=== PATIENT | female | born 1975 | race Caucasian/White ===

== ENCOUNTER 2018-10-20 15:45 | Outpatient (CLI) | payer BC ==
--- NOTE | 2018-10-20 16:13 | RAD ---
TWO VIEW CHEST: Indication: Shortness of breath for one month. FINDINGS: Lungs are clear. No effusion or pneumothorax. Cardiac silhouette is normal in size. The osseous struc tures are intact. IMPRESSION: No focal consolidation. POS: C
== END 2018-10-20 15:46 | disposition home or self-care (01) ==
LOC: SCSRAD 15:45
PROVIDERS: ATTEND Family Medicine
DX: R06.9 Unspecified abnormalities of breathing (principal)
CPT/HCPCS: 71046

== ENCOUNTER 2020-01-13 07:34 | Outpatient (CLI) | payer BC ==
--- NOTE | 2020-01-13 10:24 | MRI ---
MRI LEFT KNEE: Date; 01/13/2020 PROVIDED CLINICAL HISTORY: Left knee pain. FINDINGS: Comparison made with the study dated 06/05/2013. Postoperative changes of ACL reconstruction are again demonstrated, with an intact appearance to the ACL graft. There is no evidence for mass-producing arthrofibrosis. The PCL, MCL, LCLC, and extensor m echanism appear intact. Evaluation of the menisci is limited by patient motion on the coronal sequences. There is possible Gr diane III signal involving the body of the medial meniscus in a vertical longitudinal peripheral manner as seen on image 20 of series 7 and 9. Of note, motion artifact is present in this region on both im aging sequences. The lateral meniscus demonstrates no definite evidence for tear. There is articular cartilage irregularity involving the posterior central lateral femoral condyle wit hout full thickness articular cartilage loss apparent. There is articular cartilage irregularity invo lving the median ridge and lateral facet of the patella with foci of near full thickness articular ca rtilage fissuring. There is lateral patellar tilt. There is a moderate-large knee joint effusion. No focal concerning regional marrow or muscular signal abnormality is evident. IMPRESSION: 1. Findings equivocal for nondisplaced peripheral vertical longitudinal tear involving the body of t he medial meniscus. 2. 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 3. Moderate-large knee joint effusion. POS: ANA
== END 2020-01-13 07:35 | disposition home or self-care (01) ==
LOC: BICMRI 07:34
PROVIDERS: ATTEND Orthopaedic Surgery
DX: M23.92 Unspecified internal derangement of left knee (principal); S83.242A Other tear of medial meniscus, current injury, left knee, initial encounter; M25.462 Effusion, left knee; M22.2X2 Patellofemoral disorders, left knee

== ENCOUNTER 2020-01-22 07:11 | Outpatient (CLI) | payer BC ==
[2020-01-22 15:16] LABS: #Basophils 0.1 10x3/uL (0.0-0.2); #Eosinphils 0.3 10x3/uL (0.0-0.5); #Monocytes 0.5 10x3/uL (0.0-1.1); #Neutrophils 5.8 10x3/uL (1.5-8.4); %Basophils 0.9 % (0.0-2.0); %Eosinophils 3.2 % (0.0-6.0); %Lymphocytes 22.4 % (18.0-47.0); %Monocytes 5.5 % (0.0-10.0); %Neutrophils 67.5 % (40.0-75.0); Hemoglobin 13.2 g/dL (12.0-16.0); Mean Corpuscular HGB CONC 32.5 G/DL (32.0-36.0); Mean Corpuscular Hemoglobin 28.9 PG (27.0-33.0); Mean Corpuscular Volume 88.8 fl (80.0-100.0); Mean Platelet Volume 10.5 fl (7.4-10.4); Platelet Count 316 10x3/uL (130-400); RBC Distribution Width 13.1 % (11.5-14.5); Red Blood Cell (RBC) Count 4.57 10x6/uL (3.90-5.20); White Blood Cell (WBC) Count 8.7 10x3/uL (4.5-11.0)
[2020-01-22 15:37] LABS: Anion Gap 15 mmol/L (10-20); BUN (Urea Nitrogen) 18 mg/dL (7.0-18.7); Calc. Creatinine Clearance 0 mL/min (70-130); Calcium 9.3 mg/dL (7.8-10.44); Carbon Dioxide 24 mmol/L (22-29); Chloride 103 mmol/L (98-107); Estimated GFR-MDRD 77; Potassium 4.8 mmol/L (3.5-5.1); Sodium 137 mmol/L (136-145)
[2020-01-22 15:44] LABS: BHCG - Serum Negative (NEGATIVE); Pregs Control Background? CLEAR/WHITE (CLR/WHITE); Pregs Control Bar Appear? YES (CONTROL BAR)
[2020-01-22 15:48] LABS: Glucose 58 mg/dL (70-105)
[2020-01-23 13:42] LABS: SARS-CoV-2 MS2 Positive; SARS-CoV-2 N Gene Negative; SARS-CoV-2 S Gene Negative; SARS-CoV-2 by NAA Not Detected (NotDetected); SARS-CoV-2 orf1ab Negative
--- NOTE | 2020-01-24 20:56 | EKG ---
Test Reason : Blood Pressure : / mmHG Vent. Rate : 065 BPM Atrial Rate : 065 BPM P-R Int : 140 ms QRS Dur : 092 ms QT Int : 388 ms P-R-T Axes : 067 070 062 degrees QTc Int : 403 ms Normal sinus rhythm Normal ECG No previous ECGs available Confirmed by Kelly ORTIZ ([id number]) on 01/24/2020 8:55:36 PM Referred By: MADHAVI Confirmed By:Kelly ORTIZ
== END 2020-01-22 07:12 | disposition home or self-care (01) ==
LOC: LABBT 07:11
PROVIDERS: ATTEND Orthopaedic Surgery
DX: Z01.818 Encounter for other preprocedural examination (principal); Z20.828 Contact with and (suspected) exposure to other viral communicable diseases; M23.92 Unspecified internal derangement of left knee
CPT/HCPCS: 80048; 84703; 85025; 87635; 93005; 93010; U0003

== ENCOUNTER 2020-01-27 06:08 | Day surgery (SDC) | payer BC ==
[2020-01-26 08:18] VITALS: BMI 34.4
--- NOTE | 2020-01-27 05:36 | HP ---
HISTORY OF PRESENT ILLNESS: The patient is a 44-year-old female, who has a year and a half history of intermittent pain and popping in her left knee, which developed after twisting her knee while sitting in an airplane. She has had some intermittent symptoms since that time, which have persisted despite rest, restriction of activities, anti-inflammatory medications, and previous cortisone injection. She will feel something pop out of place and she manipulates her knee back and then the symptoms resolve. She underwent ACL reconstruction in [place] in 1993 with initial good results. PAST MEDICAL HISTORY: The patient is otherwise in good health. She has a history of depression and ADHD. CURRENT MEDICATIONS: Include sertraline, spironolactone, aripiprazole, Vyvanse. ALLERGIES: SHE IS ALLERGIC TO ANIMALS AND POLLEN, BUT NO MEDICAL ALLERGIES. FAMILY HISTORY: Otherwise unremarkable. SOCIAL HISTORY: Otherwise unremarkable. REVIEW OF SYSTEMS: Otherwise unremarkable. PHYSICAL EXAMINATION: GENERAL: Reveals a healthy heavyset female. HEENT: Unremarkable. NECK: Supple. CHEST: Clear. HEART: Regular rate and rhythm. ABDOMEN: Soft, nontender. PELVIC: Deferred. RECTAL: Deferred. BREASTS: Deferred. EXTREMITIES: Pertinent findings of the left knee. There is 1+ effusion. There are healed incisions from previous ACL reconstruction. There is tenderness of the medial joint line. Range of motion is from 5 to 90 degrees and is painful. There is pain with attempted Tony's. On exam, the knee appears to be stable. Neurovascular exam is intact. DIAGNOSTIC STUDIES: X-rays of the right knee reveal evidence of previous ACL reconstruction and mild degenerative changes. MRI scan reveals previous ACL reconstruction and graft appear to be intact. There are mild degenerative changes and there are findings suggestive of nondisplaced peripheral vertical tear of the medial meniscus. IMPRESSION: Internal derangement of left knee with probable medial meniscal tear. PLAN: Arthroscopy of the left knee with partial medial meniscectomy and/or debridement and shaving. The nature of the surgery, length of recovery, and potential complications such as infection, loss of motion, incomplete relief, thromboembolic phenomena, neurovascular injury, posttraumatic degenerative arthritis, recurrent tear, need for additional treatment, and repeat surgery have been discussed in detail. Job ID: [id number]
[2020-01-27] MEDS ORDERED: Fentanyl 100 MCG/2 ML VIAL ONE (06:51)
[2020-01-27] MEDS ORDERED: Midazolam HCl 2 mg/2 ml Vial ONE (07:06)
[2020-01-27] MEDS ORDERED: Scopolamine 1.5 mg/72 hour Patch ONE (07:06)
[2020-01-27] MEDS ORDERED: Propofol 1,000 MG/100 ML VIAL IV ONE ×2 (07:30→08:07)
[2020-01-27] MEDS ORDERED: Bupivacaine 0.25% HCL 30 ML VIAL ONE (07:58)
[2020-01-27] MEDS ORDERED: Lidocaine 1% w/Epinephrine 1:100K 20 ML VIAL ONE (07:58)
[2020-01-27] MEDS ORDERED: Lidocaine 1% PF 5 ML VIAL ONE (09:49)
[2020-01-27] MEDS ORDERED: Labetalol HCl 100 MG/20 ML VIAL ONE (09:49)
[2020-01-27] MEDS ORDERED: Dexamethasone 20 MG/5 ML VIAL ONE (09:49)
[2020-01-27] MEDS ORDERED: PROPOFOL 200 MG/20 ML VIAL ONE (09:49)
[2020-01-27] MEDS ORDERED: Ondansetron PF 4 MG/2 ML Vial ONE (09:49)
[2020-01-27] MEDS ORDERED: Ketorolac Tromethamine 30 MG/ML VIAL ONE (09:49)
[2020-01-27] MEDS ORDERED: HYDROcodone/Acetaminophen 5/325 mg Tablet ONE (09:56)
--- NOTE | 2020-01-28 14:03 | OP ---
DATE OF PROCEDURE: 01/27/2020 ANESTHESIA: General. PREOPERATIVE DIAGNOSIS: Medial meniscal tear of the left knee. POSTOPERATIVE DIAGNOSIS: Medial meniscal tear of the left knee. PROCEDURE PERFORMED: Arthroscopy of the left knee with partial medial meniscectomy. OPERATIVE FINDINGS: Examination under anesthesia revealed the knee to be stable. On arthroscopy, there was grade 2 and early grade 3 chondromalacia and fraying of the central portion of the patella. No areas of exposed bone. There was a displaced bucket-handle tear of the medial meniscus in the intercondylar notch, and once this was removed, there was a so-called double bucket-handle tear, which was displaceable of the remaining rim of the meniscus, necessitating removal of most of the meniscus except for an intact rim approximately 1 mm and a small anterior horn. There were minimal degenerative changes of the medial compartment. The previous ACL graft appeared to be intact. Lateral meniscus was intact. There was minimal degenerative fraying of the free edge of the meniscus. DESCRIPTION OF PROCEDURE: After satisfactory anesthesia was induced in supine position, the patient was placed on the leg kwong and then prepped and draped in routine manner. The left leg was elevated and exsanguinated with an Esmarch bandage and the tourniquet inflated to 300 mmHg. [place] arthroscope was introduced through anterolateral portal, probed through the anteromedial portal. Inflow and outflow accomplished through the scope using a [place] arthroscopy pump. Arthroscopy was carried out and above findings were noted. All findings were documented with video printer and hard copies were made. The anterior horn attachment of the displaced bucket-handle tear of the medial meniscus was detached with meniscal scissors. The scope was then introduced in the anteromedial portal and meniscal grabber introduced in the anterolateral portal and the fragment grasped. The posterior horn attachment of the bucket-handle fragment was then detached with meniscal scissors introduced through a central transpatellar tendon portal and the fragment removed through the anterolateral portal. The scope was reintroduced into the anterolateral portal and the remaining meniscus visualized and above findings noted. There was displaceable second buckle-handle tear of the remaining rim, which was removed with the use of basket forceps and motorized shaver. The remaining rim was balanced and probed and found to be stable. There was an intact rim of approximately 1 mm. The central portion of the patella was debrided with slight amount of chondromalacia patella and all compartments were visualized and no additional pathology found. The knee was copiously irrigated through the scope and all instruments were then withdrawn. A mixture of 30 mL of 0.25% plain Marcaine and 20 mL of 1% lidocaine with epinephrine was made and 30 mL of this mixture was instilled into the knee joint and additional 20 mL injected about the portal sites. The portal sites were closed with interrupted 3-0 nylon and a sterile bulky compressive dressing was applied and the tourniquet deflated after 31 minutes. The foot promptly pinked up, and the patient was awakened and taken to recovery room in stable condition. There were no apparent intraoperative complications. The estimated blood loss was negligible. The patient will be discharged home in satisfactory condition, instructed on ice, elevation, use of crutches, and home exercise program with Physical Therapy Department. She was given written wound care instructions and has [place] [address] at home for pain. She will be rechecked in my office in 10 to 14 days or sooner if there are any problems prior to that time. Job ID: [id number]
== END 2020-01-27 11:30 | disposition home or self-care (01) ==
LOC: SDC 06:08
PROVIDERS: ATTEND Orthopaedic Surgery
PROC: 0SBD4ZZ Excision of Left Knee Joint, Percutaneous Endoscopic Approach (ICD-10-PCS; principal; 2020-01-27)
DX: M23.312 Other meniscus derangements, anterior horn of medial meniscus, left knee (principal); S83.212A Bucket-handle tear of medial meniscus, current injury, left knee, initial encounter; M22.42 Chondromalacia patellae, left knee; F32.9 Major depressive disorder, single episode, unspecified; F90.9 Attention-deficit hyperactivity disorder, unspecified type; Z79.899 Other long term (current) drug therapy; Z91.048 Other nonmedicinal substance allergy status
CPT/HCPCS: J0690; J1100; J1885; J2250; J2405; J2704; J3010; S0020

== ENCOUNTER 2021-05-11 08:52 | Outpatient (CLI) | payer BC | END 2021-05-11 08:53 | disposition home or self-care (01) | LOC: DTY/OP 08:52 | PROVIDERS: ATTEND Specialist | DX: Z01.818 Encounter for other preprocedural examination (principal); E66.01 Morbid (severe) obesity due to excess calories; Z71.3 Dietary counseling and surveillance | CPT/HCPCS: 97802 ==

== ENCOUNTER 2021-07-06 13:15 | Inpatient (IN) | payer BC ==
[2021-07-07 14:45] VITALS: BMI 41.9
[2021-07-11] MEDS ORDERED: Ketorolac Tromethamine 30 MG/ML VIAL ONE (08:21)
[2021-07-11] MEDS ORDERED: Acetaminophen 500 MG TAB ONE (08:21)
[2021-07-11] MEDS ORDERED: Scopolamine 1.5 mg/72 hour Patch ONE (09:02)
[2021-07-11] MEDS ORDERED: Heparin 5,000 UNITS/ML VIAL ONE (09:02)
[2021-07-11] MEDS ORDERED: EPINEPHrine 1 MG/ML AMP ONE (10:23)
[2021-07-11] MEDS ORDERED: Bupivacaine 0.25% 10 ML VIAL ONE (10:23)
[2021-07-11] MEDS ORDERED: Propofol 500 MG/50 ML VIAL ONE ×2 (10:26→12:30)
[2021-07-11] MEDS ORDERED: SUGAMMADEX SODIUM 200 MG/2 ML VIAL ONE (10:26)
[2021-07-11] MEDS ORDERED: Fentanyl 250 MCG/5 ML VIAL ONE (10:26)
[2021-07-11] MEDS ORDERED: Midazolam HCl 2 mg/2 ml Vial ONE (10:26)
[2021-07-11] MEDS ORDERED: cefOXitin 2 GM VIAL ONE (10:40)
[2021-07-11] MEDS ORDERED: Sodium Chloride 0.9% 100 ML ONE (10:41)
[2021-07-11] MEDS ORDERED: Lidocaine 1% PF 5 ML VIAL ONE (10:55)
[2021-07-11] MEDS ORDERED: Labetalol HCl 100 MG/20 ML VIAL ONE (10:55)
[2021-07-11] MEDS ORDERED: Metoprolol Tartrate 5 MG/5 ML VIAL ONE (10:55)
[2021-07-11] MEDS ORDERED: PROPOFOL 200 MG/20 ML VIAL ONE (10:55)
[2021-07-11] MEDS ORDERED: diphenhydrAMINE 50 MG/ML VIAL ONE (10:55)
[2021-07-11] MEDS ORDERED: Rocuronium Bromide 10 MG/ML (10ML VIAL) ONE (10:55)
[2021-07-11] MEDS ORDERED: Dexamethasone 20 MG/5 ML VIAL ONE (10:55)
[2021-07-11] MEDS ORDERED: Ondansetron PF 4 MG/2 ML Vial ONE (10:55)
[2021-07-11] MEDS ORDERED: Famotidine/PF 20 mg/2ml Vial ONE (11:26)
[2021-07-11] MEDS ORDERED: Hydrocodone-Acetamin 15 ML UDCUP PO PRN (13:35)
[2021-07-11] MEDS ORDERED: Dextrose 5% in Water 1,000 ML IV PRN (13:35)
[2021-07-11] MEDS ORDERED: Morphine 2 MG/ML VIAL SLOW IVP PRN (13:35)
[2021-07-11] MEDS ORDERED: Dextrose 50% Abboject 50 ML SYRINGE SLOW IVP PRN (13:35)
[2021-07-11] MEDS ORDERED: Morphine 4 MG/ML VIAL SLOW IVP PRN (13:35)
[2021-07-11] MEDS ORDERED: diphenhydrAMINE 50 MG/ML VIAL IVP PRN (13:35)
[2021-07-11] MEDS ORDERED: Promethazine HCl 25 MG/ML VIAL IM PRN (13:35)
[2021-07-11] MEDS ORDERED: hydrALAZINE 20 MG/ML VIAL SLOW IVP PRN (13:35)
[2021-07-11] MEDS ORDERED: Ondansetron PF 4 MG/2 ML Vial IVP PRN (13:35)
[2021-07-11] MEDS ORDERED: Promethazine HCl 25 MG/ML VIAL ONE (13:46)
[2021-07-11] MEDS ORDERED: Fentanyl 100 MCG/2 ML VIAL ONE (13:51)
[2021-07-11] MEDS ORDERED: Ketorolac Tromethamine 30 MG/ML VIAL IVP SCH (14:00)
[2021-07-11] MEDS: D5 1/2 NS w/20 mEq KCL 1,000 ML IV SCH ×2 (15:09→21:44)
[2021-07-11] MEDS ORDERED: Aripiprazole 15 MG TAB PO SCH (21:00)
[2021-07-11] MEDS ORDERED: Enoxaparin Sodium 40 MG/0.4 ML SYRINGE SC SCH (21:00)
[2021-07-11] MEDS ORDERED: Metoclopramide HCl 10 MG/2 ML VIAL IVP PRN (21:14)
[2021-07-11] MEDS: Ketorolac Tromethamine 30 MG/ML VIAL IVP SCH (21:41)
[2021-07-12] MEDS: Ketorolac Tromethamine 30 MG/ML VIAL IVP SCH ×2 (02:39→08:30)
[2021-07-12] MEDS: D5 1/2 NS w/20 mEq KCL 1,000 ML IV SCH (06:40)
[2021-07-12 07:03] LABS: #Lymphocytes 1.2 thou/uL (1.20-3.40); #Monocytes 0.7 thou/uL (0.11-0.59); %Basophils 0.1 % (0.0-1.0); %Eosinophils 0.1 % (0.0-10.0); %Lymphocytes 7.4 % (21.0-51.0); %Monocytes 4.2 % (0.0-10.0); %Neutrophils 88.1 % (42.0-75.0); Hemoglobin 12.4 g/dL (12.0-16.0); Mean Corpuscular HGB CONC 34.9 g/dL (32.0-36.0); Mean Corpuscular Hemoglobin 31.9 pg (27.0-31.0); Mean Corpuscular Volume 91.5 fL (78.0-98.0); Mean Platelet Volume 7.8 fL (7.4-10.4); Platelet Count 244 thou/uL (130-400); RBC Distribution Width 12.3 % (11.5-14.5); Red Blood Cell (RBC) Count 3.88 mill/uL (4.20-5.40); White Blood Cell (WBC) Count 15.9 thou/uL (4.8-10.8)
[2021-07-12 07:24] LABS: Anion Gap 11 mmol/L (10-20); BUN (Urea Nitrogen) 9 mg/dL (7.0-18.7); Calc. Creatinine Clearance 172 mL/min (70-130); Calcium 8.5 mg/dL (7.8-10.44); Carbon Dioxide 22 mmol/L (22-29); Chloride 104 mmol/L (98-107); Glucose 123 mg/dL (70-105); Potassium 4.7 mmol/L (3.5-5.1); Sodium 132 mmol/L (136-145)
[2021-07-12] MEDS ORDERED: Lisdexamfetamine Dimesylate [Vyvanse] 70 MG Capsule PO SCH (09:00)
[2021-07-12] MEDS ORDERED: Pantoprazole 40 MG VIAL IVP SCH (09:00)
[2021-07-12 09:07] VITALS: BP 131/82; TEMP 98.4
== END 2021-07-12 12:05 | disposition home or self-care (01) | DRG 621 ==
LOC: SURG A 07-11 07:39 → SURG B 07-11 14:58
PROVIDERS: ADMIT Specialist; ATTEND Specialist
PROC: 0DB64Z3 Excision of Stomach, Percutaneous Endoscopic Approach, Vertical (ICD-10-PCS; principal; 2021-07-11)
DX: E66.01 Morbid (severe) obesity due to excess calories (principal); Z68.41 Body mass index [BMI] 40.0-44.9, adult; F32.A Depression, unspecified; F41.9 Anxiety disorder, unspecified; J45.909 Unspecified asthma, uncomplicated; Z90.49 Acquired absence of other specified parts of digestive tract; Z82.49 Family history of ischemic heart disease and other diseases of the circulatory system; Z82.5 Family history of asthma and other chronic lower respiratory diseases; Z79.899 Other long term (current) drug therapy; Z80.1 Family history of malignant neoplasm of trachea, bronchus and lung; Z87.891 Personal history of nicotine dependence
CPT/HCPCS: 36415; 80048; 85025; 88307; 88342; 94760; C1889; C9113; J0171; J0694; J1100; J1200; J1644; J1650; J1885; J2250; J2270; J2405; J2550; J2704; J2765; J3010; J3480; J3490; S0020; S0028

== ENCOUNTER 2021-07-06 13:16 | Outpatient (CLI) | payer BC ==
[2021-07-06 15:08] LABS: #Basophils 0.1 10x3/uL (0.0-0.2); #Eosinphils 0.2 10x3/uL (0.0-0.5); #Monocytes 0.5 10x3/uL (0.0-1.1); #Neutrophils 8.1 10x3/uL (1.5-8.4); %Basophils 0.6 % (0.0-2.0); %Eosinophils 1.4 % (0.0-6.0); %Lymphocytes 15.9 % (18.0-47.0); %Monocytes 4.3 % (0.0-10.0); %Neutrophils 77.3 % (40.0-75.0); Hemoglobin 13.6 g/dL (12.0-15.5); Mean Corpuscular HGB CONC 32.9 g/dL (32.0-36.0); Mean Corpuscular Hemoglobin 29.6 pg (27.0-33.0); Mean Corpuscular Volume 90.2 fl (81.6-98.3); Mean Platelet Volume 10.8 fl (7.4-10.4); Platelet Count 284 10x3/uL (150-450); RBC Distribution Width 13.6 % (11.5-14.5); Red Blood Cell (RBC) Count 4.59 10x6/uL (3.90-5.03); White Blood Cell (WBC) Count 10.4 10x3/uL (3.5-10.5)
[2021-07-06 15:21] LABS: Anion Gap 17 mmol/L (10-20); BUN (Urea Nitrogen) 14 mg/dL (7.0-18.7); Calc. Creatinine Clearance 0 mL/min (70-130); Calcium 9.4 mg/dL (7.8-10.44); Carbon Dioxide 23 mmol/L (22-29); Chloride 102 mmol/L (98-107); Glucose 82 mg/dL (70-105); Potassium 4.3 mmol/L (3.5-5.1); Sodium 138 mmol/L (136-145)
[2021-07-07 00:19] LABS: SARS-CoV-2 PCR by NAA Not Detected (NotDetected)
== END 2021-07-06 13:17 | disposition home or self-care (01) ==
LOC: LABBT 13:16
PROVIDERS: ATTEND Specialist
DX: Z01.818 Encounter for other preprocedural examination (principal); E66.01 Morbid (severe) obesity due to excess calories; Z20.822 Contact with and (suspected) exposure to COVID-19
CPT/HCPCS: 80048; 85025; 93005; 93010; U0003; U0005